=== PATIENT | female | born 1990 | race Caucasian/White ===

== ENCOUNTER 2021-02-10 20:49 | Inpatient (IN) | payer OTHER ==
[2021-02-10 21:43] LABS: BILIRUBIN NEGATIVE (NEGATIVE); BLOOD NEGATIVE Ery/uL (NEGATIVE); CLARITY CLEAR (CLEAR); COLOR YELLOW (YELLOW); GLUCOSE (U) NORMAL (NORMAL); LEUKOCYTES NEGATIVE Leu/uL (NEGATIVE); NITRITE NEGATIVE (NEGATIVE); PROTEIN NEGATIVE (NEGATIVE); SPECIFIC GRAVITY 1.015 (1.001-1.030); UROBILINOGEN 0.2 mg/dL (0.2-1.0)
[2021-02-10 22:30] LABS: BASOPHIL 0.3 % (0-2); EOSINOPHIL 0.3 % (0-5); HCT 38.6 % (37.0-47.0); HGB 13.3 g/dl (12.5-16.0); LYMPHOCYTE 25.4 % (15-48); MCH 31.7 pg (25.0-31.0); MCHC 34.5 g/dL (32.0-36.0); MCV 91.9 fL (78.0-100.0); MONOCYTE 6.2 % (0-12); MPV 11.7 fL (6.0-9.5); NEUTROPHIL 67.3 % (41-80); NRBC 0; PLT 219 K/uL (150-400); RDW 12.1 % (11.5-14.0); WBC 9.6 K/uL (4.0-10.5)
[2021-02-11 11:18] LABS: HCT 36.1 % (37.0-47.0); HGB 12.2 g/dl (12.5-16.0); MCH 31.4 pg (25.0-31.0); MCHC 33.8 g/dL (32.0-36.0); MPV 11.2 fL (6.0-9.5); RBC 3.88 M/uL (4.20-5.40); RDW 12.1 % (11.5-14.0); WBC 11.4 K/uL (4.0-10.5)
== END 2021-02-12 14:27 | disposition home or self-care (01) | DRG 788 ==
LOC: FOB 20:49 → FOD 20:49 → FOB 20:50 → FOD 21:40 → FOB 21:41
PROVIDERS: ADMIT Obstetrics & Gynecology
PROC: 10D00Z1 Extraction of Products of Conception, Low, Open Approach (ICD-10-PCS; principal; 2021-02-10 22:08)
DX: O77.9 Labor and delivery complicated by fetal stress, unspecified (principal); O34.211 Maternal care for low transverse scar from previous cesarean delivery; O42.92 Full-term premature rupture of membranes, unspecified as to length of time between rupture and onset of labor; Z37.0 Single live birth; Z3A.38 38 weeks gestation of pregnancy; Z20.822 Contact with and (suspected) exposure to COVID-19; O99.824 Streptococcus B carrier state complicating childbirth; Z90.49 Acquired absence of other specified parts of digestive tract; Z86.16 Personal history of COVID-19
CPT/HCPCS: 36415; 81003; 84112; 85025; 86850; 86900; 86901; J0690; J1885; J2274; J2405; J3010; J7120; U0002